=== PATIENT | male | born 2000 | race Caucasian/White ===

== ENCOUNTER 2021-03-08 22:58 | Emergency (ER) | payer OTHER ==
[~2021-03-08] VITALS: Ht 162.6 cm; Wt 63.5 kg
[~2021-03-08 22:58] MED LIST: NOHOMEMEDICATIONS; SEPTRA SUSPENS100 ML PO
[2021-03-09 00:16] VITALS: BP 123/66
--- NOTE | 2021-03-10 10:26 | EKG ---
[place] [address] ELECTROCARDIOGRAM REPORT Name: SHARON BOWENS Room: [facility]#: [id number] Admission: 03/08/21 Attend Phys: Discharge: 03/09/21 Date of : 89 Date of Service: 03/08/212303 Report #: [id number] THIS REPORT FOR: //name// [facility] ED Test Date: 2021-03-08 Test Time: 23:04:50 Pat Name: SHARON BOWENS Department: Room: Gender: Color Matcher: [place] : 2000 Requested By: Gely Pandya Order Number: [id number] Schuyler MD: Ehsan Perez Measurements Intervals [place] Rate: 55 P: 72 MO: 171 QRS: 51 QRSD: 88 T: 50 QT: 381 QTc: 365 Interpretive Statements Sinus bradycardia ST elev, probable normal early repol pattern No previous ECG available for comparison Electronically Signed On 03-10-2021 10:26:13 CDT by Ehsan Perez [email or web address] <ELECTRONICALLY SIGNED> By: Ehsan Perez MD, [facility] 03/10/21 1026 03 03 Ehsan Perez MD, FACC /EPI
== END 2021-03-09 00:16 | disposition home or self-care (01) ==
LOC: M.ERS 22:58
DX: R07.89 Other chest pain (principal); F17.210 Nicotine dependence, cigarettes, uncomplicated